=== PATIENT | male | born 1955 | race Caucasian/White ===

== ENCOUNTER → 2016-09-16 | Outpatient (CLI) | payer BC ==
[~2016-09-16] MED LIST: FRCT/ PO; HYDR-5688 PO; IBUP-1050 PO; MULT-506 PO; ONDA8TAB6 PO
--- NOTE | 2016-09-16 16:43 | DIAGNOSTIC IMAGING REPORT ---
MRI right knee RIGHT LOWER EXT JOINT WITHOUT CLINICAL HISTORY: PAIN IN R KNEE Right pain TECHNIQUE: MRI multi axial acquisition COMPARISON STUDY: None FINDINGS: Signal characteristics of the osseous structures are unremarkable. Anterior and posterior cruciate ligaments are intact. Infrapatellar ligament is intact. There is no bone marrow replacing process. There is no significant chondromalacia patella. There are findings of mild degenerative changes of the patellar articulating surface. Lateral meniscus shows slight degree of truncation of the meniscal apex. This appears to be nonacute. There is also considerable substance loss of the mid and anterior aspect medial meniscus again most likely pre-existing and/or degenerative. A superimposed acute meniscal tear is not felt to be present. There is a very small joint effusion. There is no significant popliteal cyst. IMPRESSION: 1. Substance deterioration/postoperative change involving the medial and to a lesser extent lateral meniscus. 2. Mild degenerative changes of the articular services of all major joint compartments. 3. All findings appear to be on a degenerative basis with no well-defined acute meniscal tear of the residual meniscal substance Electronically signed by: Alan Hawk M.D. 09/16/2016 4:42 PM Dictated Date/Time: 09/16/2016 4:32 PM
== END | disposition home or self-care (01) ==
PROVIDERS: ATTEND Orthopaedic Surgery
DX: M25.561 Pain in right knee (principal)

== ENCOUNTER → 2016-09-23 | Outpatient (CLI) | payer BC ==
[2016-09-23 16:45] LABS: BASO % 0.4 %; BASO ABS # 0.03 K/uL (0-0.2); COMPLETE YES; EOS % 2.8 %; IG% 0.2 %; LYMPH % 33.3 %; LYMPH ABS # 2.81 K/uL (1.2-3.4); MEAN CELL VOLUME 91.6 fL (80-100); MEAN CORPUSCULAR HGB CONC 34.9 g/dl (32-36); MEAN PLATELET VOLUME 11.9 fL (7.4-10.4); MONO % 10.6 %; NEUT % 52.7 %; PLATELET COUNT 194 K/uL (130-400); RED BLOOD COUNT 5.13 M/uL (4.7-6.1); WHITE BLOOD COUNT 8.43 K/uL (4.8-10.8)
[2016-09-23 17:21] LABS: BLOOD UREA NITROGEN 10 mg/dl (7-18); BUN/CREATININE RATIO 9.5 (10-20); CALCIUM 8.7 mg/dl (8.5-10.1); CARBON DIOXIDE 27 mmol/L (21-32); CHLORIDE 108 mmol/L (98-107); GLUCOSE 74 mg/dl (70-99); POTASSIUM 3.8 mmol/L (3.5-5.1); SODIUM 142 mmol/L (136-145)
== END | disposition home or self-care (01) ==
LOC: C.CPL 15:56
PROVIDERS: ATTEND Orthopaedic Surgery
DX: Z01.810 Encounter for preprocedural cardiovascular examination (principal); Z01.812 Encounter for preprocedural laboratory examination; S83.241D Other tear of medial meniscus, current injury, right knee, subsequent encounter; X58.XXXD Exposure to other specified factors, subsequent encounter

== ENCOUNTER → 2016-10-08 | Day surgery (SDC) | payer BC ==
[2016-09-29 12:00] VITALS: Ht 175.3 cm; Wt 113.2 kg
[~2016-10-08] VITALS: Ht 175.3 cm; Wt 113.2 kg
[~2016-10-08] MED LIST changes: +CEFAZOLIN 2000 MG/60 ML D5W IV SCH; +DEXAMETHASONE SOD INJ 4 MG/ML VIAL ONE; +EpINEphrine INJ 1MG/ML AMP 1 MG/ML AMP ONE; +FENTANYL CITRATE INJ 50 MCG/1 ML 2 ML VIAL ONE; +HYDROCODONE/ACETAMOPHEN 5/325MG TAB PO PRN; +KETOROLAC TROMETHAMINE 30 MG/ML VIAL IV. PRN; +KETOROLAC TROMETHAMINE 30 MG/ML VIAL ONE; +LACTATED RINGER'S 1000ML 1,000 ML IV PRN; +LACTATED RINGER'S 1000ML 1,000 ML IV SCH; +LIDOCAINE HCL 2% 2 ML VIAL (20MG/ML) ONE; +MIDAZOLAM HCL 1 MG/ML 2ML VIAL ONE; +ONDANSETRON INJ 2 MG/ML 2 ML VIAL IV PRN; +ONDANSETRON INJ 2 MG/ML 2 ML VIAL ONE; +PROPOFOL IV EMULSION 10 MG/ML 20 ML VIAL IV ONE; +ROPIVACAINE 0.5% 5 MG/ML 30 ML VIAL ONE; +SODIUM CHLORIDE 0.9% 1000ML 1,000 ML IV SCH; +SUCCINYLCHOLINE 100MG/5ML SYR IV ONE
--- NOTE | 2016-10-08 08:37 | History & Physical Bridge - [place] ---
H&P Re-Evaluation Bridge Note: I have examined the patient, reviewed the History & Physical and in the interval since the performance of the History & Physical I have noted the following changes of clinical significance: No changes noted
--- NOTE | 2016-10-08 10:01 | [facility] Post Operative Brief Note ---
Immediate Operative Summary Operative Date Oct 08, 2016. Pre-Operative Diagnosis Right Acute Medial Meniscal Tear Post-Operative Diagnosis Same Procedure(s) Performed Right Knee Arthroscopy, Partial Lateral Meniscectomy Surgeon Dr. Kelly Manufacturing Scheduler Surgeon(s) Mariana Hinojosa PA-C Estimated Blood Loss None Findings as above Specimens None Complication(s) None Disposition Recovery Room / PACU
--- NOTE | 2016-10-08 10:08 | Discharge Instructions-SurgCtr ---
Discharge Instructions Date of Service Oct 08, 2016. Visit Reason for Visit: Acute Meniscal Tear, Medial, Right Knee Discharge Discharge Diagnosis / Problem: SAME ABOVE Discharge Goals Goal(s): Decrease discomfort, Improve function Activity Recommendations Activity Limitations: as noted below Lifting Limitations: gradually increase as tolerated Exercise/Sports Limitations: gradually increase as tolerated Anesthesia . Post Anesthesia Instructions: If you have had General Anesthesia or IV Sedation: * Do not drive today. * Resume driving when surgeon permits. * Do not make important decisions or sign legal documents today. * Call surgeon for: 1. Temperature elevations greater than 101 degrees F. 2. Uncontrollable pain. 3. Excessive bleeding. 4. Persistent nausea and vomiting. 5. Medication intolerance (nausea, vomiting or rash). * For nausea and vomiting use only clear liquids such as: tea, soda, bouillon until nausea subsides, then gradually increase diet as tolerated. * If you have any concerns or questions, call your surgeon's office. If physician is unavailable and it is an emergency, call 911 or go to the nearest emergency room. . Instructions / Follow-Up Instructions / Follow-Up MEDICATIONS: * Resume previous medications unless instructed otherwise by your surgeon. * Always take pain medication on a full stomach or with food to avoid upset stomach. * Do not drink alcohol or drive while taking narcotics. * Ibuprofen or Tylenol may be taken if narcotic not needed. SPECIAL CARE INSTRUCTIONS: __ None _X_ Keep extremity elevated and iced x 48 hours; apply ice 20-30 minutes 8-10 times/day. May remove at night. _X_ Crutches _X_ May discard when able __ Brace/Post-op shoe __ 24 hrs/day __ Remove at night _X_ Dressing __ Maintain until seen in office, may shower with plastic over site _X_ Remove dressings in 24-48 hours and then may shower _X_ Cover incisions with band-aids after showering __ Do not remove steri-strips Call physician if chills or temperature rises above 102 degrees or pain unrelieved by prescribed pain medications. Office [phone] Diet Recommendations Home Diet: no limitations Fluid Restriction: None Procedures Procedures Performed: Right Knee Arthroscopy, Partial Lateral Meniscectomy Pending Studies Studies pending at discharge: no Work Instructions Return To Work: after follow-up (OR WHEN PAIN IS CONTROLLED ENOUGH) Medical Emergencies . Who to Call and When: Medical Emergencies: If at any time you feel your situation is an emergency, please call 911 immediately. . Non-Emergent Contact Non-Emergency issues call your: Primary Care Provider Call Non-Emergent contact if: you have a fever, temperature is above 101.5 . . "Provider Documentation" section prepared by Arben Hinojosa.
[2016-10-08] MEDS: FENTANYL CITRATE INJ 50 MCG/1 ML 2 ML VIAL IV PRN ×2 (10:33→10:40)
[2016-10-08 11:13] VITALS: TEMP 37
[2016-10-08 11:33] VITALS: BP 129/77; PULSE 71; O2SAT 95
--- NOTE | 2016-10-08 11:36 | Anesthesia Progress Nt - [facility] ---
Anesthesia Post Op Note Date & Time Oct 08, 2016 at 11:35 Vital Signs Pain Intensity: 3 Vital Signs Past 12 Hours Date Time Temp Pulse Resp B/P Pulse Ox O2 Delivery O2 Flow Rate FiO2 10/08/16 11:33 71 18 129/77 95 Room Air 10/08/16 11:13 37.0 70 18 132/83 94 Room Air 10/08/16 10:55 134/88 10/08/16 10:54 82 13 10/08/16 10:54 81 13 93 10/08/16 10:53 36.8 75 12 134/88 95 Room Air 10/08/16 10:50 139/89 10/08/16 10:49 79 18 10/08/16 10:49 80 18 99 10/08/16 10:45 126/87 10/08/16 10:44 74 12 97 10/08/16 10:44 74 12 10/08/16 10:40 127/86 10/08/16 10:39 75 12 10/08/16 10:39 74 12 98 10/08/16 10:35 121/84 10/08/16 10:34 73 12 10/08/16 10:34 72 12 98 10/08/16 10:30 129/86 10/08/16 10:29 79 23 10/08/16 10:29 80 23 98 10/08/16 10:25 128/87 10/08/16 10:24 83 15 99 10/08/16 10:24 83 15 10/08/16 10:20 134/84 10/08/16 10:19 79 13 99 10/08/16 10:19 79 13 10/08/16 10:15 122/81 10/08/16 10:14 83 18 97 10/08/16 10:14 83 18 10/08/16 10:10 128/81 10/08/16 10:09 85 19 128/82 99 10/08/16 10:09 36.2 86 20 128/82 99 Mask 6 10/08/16 10:09 84 19 10/08/16 07:42 36.3 70 20 121/89 96 Room Air Notes Mental Status: alert / awake / arousable, participated in evaluation Pt Amnestic to Procedure: Yes Nausea / Vomiting: adequately controlled Pain: adequately controlled Airway Patency, RR, SpO2: stable & adequate BP & HR: stable & adequate Hydration State: stable & adequate Anesthetic Complications: no major complications apparent Pt doing well. No complaints. See anesthesia record for details on intubation.
--- NOTE | 2016-10-08 12:08 | OPERATIVE REPORT ---
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 POSTOPERATIVE DIAGNOSES: Lateral meniscal fraying and tearing. No tears of the medial meniscus and grade 2 chondral damage to the distal medial femoral condyle and the trochlea. PROCEDURE: Right knee diagnostic arthroscopy with chondroplasty and partial lateral meniscectomy. SURGEON: Dr. Stanford Kelly. CONCR[employer] DRIVER OPERATOR: Reilly Hinojosa PA-C, whose assistance was necessary for positioning of the leg and helping with instrumentation. ANESTHESIA: General. COMPLICATIONS: None. CONDITION: Stable to PACU. INDICATIONS: Pino is a pleasant 60-year-old male who had 2 previous operations to his right knee. He has had a medial meniscectomy in the past. Unfortunately, he has been having some medial sided right knee pain since 2011. MRI shows some blunting of the medial meniscus and some fraying of the lateral meniscus and some chondromalacia. After failing extensive conservative treatment, he elected to proceed with arthroscopy. OPERATION OF PROCEDURE: On 10/08/2016, he arrived at [facility] for the above procedure. He was seen in the preoperative holding area and the operative extremity was identified and signed. He was given a preoperative antibiotic and taken back to the operating room, laid on the table in supine position and put under general anesthesia. The right knee was then prepped and draped in sterile fashion. Time-out was done and the patient and operative extremity was properly identified. A scope was introduced into a lateral parapatellar portal. Diagnostic arthroscopy showed no loose bodies in the suprapatellar pouch. There was a little bit of synovitis. There were some grade 2 chondral changes on the trochlea. The patella tracked in the center of the trochlea. The scope was brought into the medial compartment. There was blunting of the medial meniscus almost circumferentially. There were some grade 2 chondral changes of the distal medial femoral condyle. A medial parapatellar portal was made under direct visualization. A shaver was used to do a complete chondroplasty and to remove any of the loose cartilaginous fragments. The medial meniscus was probed extensively without any evidence of significant tearing. The scope was then brought into the trochlea. ACL and PCL were intact. The scope was brought into the lateral compartment, and there was significant fraying and tearing of the lateral meniscus. A shaver was used to remove all the unstable portions of the lateral meniscus and take the meniscus back to stable margins. There was no cartilage damage to the lateral compartment. The scope was then put into the medial parapatellar portal. Repeat diagnostic arthroscopy showed no additional pathology. Arthroscopic instruments were removed from the knee. Portal sites were closed with 3-0 nylon. The knee was then injected with 30 mL of Naropin with epinephrine and Toradol. He was then placed in a soft compressive dressing and taken to the postanesthesia care unit in stable condition. He tolerated the procedure well. I attest to the content of the Intraoperative Record and any orders documented therein. Any exceptio ns are noted below.
== END | disposition home or self-care (01) ==
LOC: X.SURG 07:33
PROVIDERS: ATTEND Orthopaedic Surgery
DX: M23.231 Derangement of other medial meniscus due to old tear or injury, right knee (principal); M23.201 Derangement of unspecified lateral meniscus due to old tear or injury, left knee; Z98.1 Arthrodesis status; G40.909 Epilepsy, unspecified, not intractable, without status epilepticus; Z98.890 Other specified postprocedural states